=== PATIENT | male | born 1965 | race Caucasian/White ===

== ENCOUNTER 2018-12-29 19:40 | Emergency (ER) | payer OTHER ==
[~2018-12-29] VITALS: Ht 175.3 cm; Wt 113.4 kg
[~2018-12-29 19:40] MED LIST: ALLOPURINOL 10100 M1 PO; INDOMETHACIN 5050 MG PO
[2018-12-29] MEDS ORDERED: VENTOLIN HFA 1818 GM INH (19:51)
[2018-12-29] MEDS ORDERED: ACETAMINOPHEN-1 EAC1 PO (21:02)
[2018-12-29 21:17] VITALS: BP 131/78
== END 2018-12-29 21:17 | disposition home or self-care (01) ==
LOC: M.ERS 19:40
DX: M25.511 Pain in right shoulder (principal); M54.5 Low back pain; J45.909 Unspecified asthma, uncomplicated; M10.9 Gout, unspecified; F17.210 Nicotine dependence, cigarettes, uncomplicated